=== PATIENT | female | born 1980 | race Hispanic/Latino ===

== ENCOUNTER 2023-07-15 21:57 | Emergency (ER) | payer OTHER, MEDICARE ==
[~2023-07-15] VITALS: Ht 152.4 cm; Wt 99.3 kg
[2023-07-16 00:29] VITALS: BP 135/68; PULSE 88; RESP 18; O2SAT 98
[2023-07-16] MEDS ORDERED: IBUP-1493 PO (00:37)
[2023-07-16] MEDS ORDERED: AMOX500C2 PO (00:37)
[2023-07-16] MEDS ORDERED: AMOXICILLIN 500 MG CAPSULE PO ONE (01:00)
[2023-07-16] MEDS ORDERED: IBUPROFEN 800 MG TAB PO ONE (01:00)
== END 2023-07-16 01:09 | disposition home or self-care (01) ==
LOC: EDH 21:57
DX: K08.89 Other specified disorders of teeth and supporting structures (principal); Z90.49 Acquired absence of other specified parts of digestive tract